=== PATIENT | female | born 1965 ===

== ENCOUNTER 2016-08-25 07:25 | Day surgery (SDC) | payer OTHER ==
[~2016-08-25] VITALS: Ht 154.9 cm; Wt 81.6 kg
[~2016-08-25 07:25] MED LIST: AMITRIPTYLINE25 M1 PO; FLEXERIL10 MG PO; GABAPENTIN300 M1 PO; MOBIC15 MG PO
[2016-08-25] MEDS ORDERED: PROPOFOL 200 MG/20 ML VIAL IV ONE (09:00)
[2016-08-25] MEDS ORDERED: MIDAZOLAM 2 MG/2 ML VIAL ONE (09:21)
[2016-08-25] MEDS ORDERED: fentaNYL 0.05 MG/ML VIAL ONE (09:21)
[2016-08-25] MEDS ORDERED: LIDOCAINE 2% 100 MG/5 ML UJET TP ONE (09:40)
[2016-08-25] MEDS ORDERED: MORPHINE SULFATE 4 MG/ML SYR IVP PRN ×2 (10:30)
[2016-08-25] MEDS ORDERED: MIDAZOLAM 2 MG/2 ML VIAL IV ONE (10:30)
[2016-08-25] MEDS ORDERED: METOCLOPRAMIDE 10 MG/2 ML INJ VIAL IVP PRN (10:30)
[2016-08-25] MEDS ORDERED: MORPHINE SULFATE 2 MG/ML SYR IVP PRN (10:30)
== END 2016-08-25 11:10 | disposition home or self-care (01) ==
LOC: MDS 07:25 → MMU 07:34 → MDS 11:10
PROVIDERS: ATTEND Internal Medicine Gastroenterology
DX: D12.2 Benign neoplasm of ascending colon (principal); I10 Essential (primary) hypertension; M19.90 Unspecified osteoarthritis, unspecified site; M32.9 Systemic lupus erythematosus, unspecified; K21.9 Gastro-esophageal reflux disease without esophagitis; J45.909 Unspecified asthma, uncomplicated; N05.9 Unspecified nephritic syndrome with unspecified morphologic changes; E07.9 Disorder of thyroid, unspecified; G43.909 Migraine, unspecified, not intractable, without status migrainosus; Z98.890 Other specified postprocedural states
CPT/HCPCS: 36415; 45385; 71010; 80053; 81001; 85025; 87086; 87186; 93005; J2250; J2704; J3010; J7030; J7120; Q0092

== ENCOUNTER 2019-09-26 04:45 | Emergency (ER) | payer OTHER ==
[~2019-09-26] VITALS: Ht 154.9 cm; Wt 81.6 kg
[~2019-09-26 04:45] MED LIST changes: +AMIT25TA28 PO; -AMITRIPTYLINE25 M1 PO; +CYCL-405 PO; -FLEXERIL10 MG PO; +GABA-560 PO; -GABAPENTIN300 M1 PO; +MELO15TA11 PO; -MOBIC15 MG PO
[2019-09-26 04:47] VITALS: BP 154/76
[2019-09-26] MEDS ORDERED: LIDOCAINE MPF 2% 100 MG/5 ML VIAL INJ ONE (04:55)
[2019-09-26] MEDS ORDERED: LIDOCAINE 2% 100 MG/5 ML SYR IVP ONE (04:55)
[2019-09-26 06:09] VITALS: BP 154/76
== END 2019-09-26 06:10 | disposition home or self-care (01) ==
LOC: MED 04:45
DX: T16.1XXA Foreign body in right ear, initial encounter (principal); Z85.9 Personal history of malignant neoplasm, unspecified; Z79.899 Other long term (current) drug therapy; Z88.6 Allergy status to analgesic agent; Z88.0 Allergy status to penicillin; Z88.1 Allergy status to other antibiotic agents; Z88.2 Allergy status to sulfonamides; Z88.5 Allergy status to narcotic agent; Z88.8 Allergy status to other drugs, medicaments and biological substances; X58.XXXA Exposure to other specified factors, initial encounter; Y93.89 Activity, other specified; Y92.89 Other specified places as the place of occurrence of the external cause; Y99.8 Other external cause status
CPT/HCPCS: 69200; 99284; J2001